=== PATIENT | female | born 1985 | race American Indian/Alaskan Native ===

== ENCOUNTER 2016-12-21 19:55 | Emergency (ER) | payer OTHER | END 2016-12-21 20:34 | disposition left against medical advice (07) | LOC: ED 19:55 | DX: M79.605 Pain in left leg (principal); Z53.21 Procedure and treatment not carried out due to patient leaving prior to being seen by health care provider ==

== ENCOUNTER 2017-02-25 20:58 | Emergency (ER) | payer OTHER ==
[2017-02-26 00:52] VITALS: BP 124/85
--- NOTE | 2017-02-26 01:01 | Emergency Department Report ---
ED General Adult HPI - General Chief complaint: High BP Stated complaint: HIGH BP/FACIAL NUMBNESS Time Seen by Provider: 02/26/17 00:20 Source: patient Mode of arrival: Ambulatory Limitations: No Limitations - History of Present Illness Initial comments: This is a 32-year-old female that presents with headache for the past 4-5 days. Patient also complains of right-sided numbness for the past 4-5 days. Patient stated went to her primary care doctor today and received a migraine medication but does not remember the name. Associated symptoms include aching in the frontal and bilateral temporal lobes. Patient stated has a history of similar symptoms. Patient denies chest pain, shortness of breath, blurry vision , nausea or vomiting. Patient denies thunderclap headache. Patient denies sudden abrupt headache. Patient stated the headache is a gradual that has been increasing in about 5 days. Patient stated darkness subsides the headache. Patient also stated lights make the headache worse. Patient denies history of high blood pressure. Patient does not seem toxic or ill in appearance. No signs and distress noted. MD Complaint: migraine headache -: Gradual ( migraine headache), days(s) (4-5) Radiation: non-radiation Severity scale (0 -10): 9 Quality: aching Consistency: constant Improves with: medication Worsens with: other (lights) Associated Symptoms: headaches. denies: confusion, chest pain, cough, diaphoresis, loss of appetite, malaise, nausea/vomiting, rash, shortness of breath, syncope, weakness Treatments Prior to Arrival: none - Related Data Home Medications Medication Instructions Recorded Confirmed Last Taken Amitriptyline [Elavil] 10 mg PO QHS 01/30/15 08/24/15 01/29/15 Previous Rx's Medication Instructions Recorded Last Taken Type ALBUTEROL NEB's [Proventil 0.083% 2.5 mg IH Q4H PRN #25 neb 11/27/13 08/23/15 15 :00 Rx NEBS] Albuterol Sulfate [Ventolin HFA] 2 puff IH Q4H PRN #1 hfa.aer.ad 11/27/13 22:00 Rx ALPRAZolam [Xanax TAB] 1 mg PO QHS PRN #12 tab 03/21/14 08/23/15 22:00 Rx Fluticasone [Flonase] 1 spray NS QDAY #1 bottle 12/22/14 08/23/15 14:00 Rx HYDROcodone/APAP 5-325 [[place] 1 - 2 each PO Q6HR PRN #20 tablet 05/25/15 09:00 Rx 5-325 mg TAB] Promethazine Dm [Phenergan Dm 5 ml PO Q6H PRN #60 ml 08/24/15 Unknown Rx 6.25/15 mg 5 ml] predniSONE [Deltasone] 20 mg PO QDAY #5 tab 08/24/15 Unknown Rx Ibuprofen [Motrin 600 MG tab] 600 mg PO Q8H PRN 5 Days 02/26/17 Unknown Rx Allergies Allergy/AdvReac Type Severity Reaction Status Date / Time shellfish derived Allergy Angioedema Verified 11/10/15 11:58 ED Review of Systems ROS: Stated complaint: HIGH BP/FACIAL NUMBNESS Other details as noted in HPI Constitutional: denies: chills, fever Eyes: denies: eye pain, eye discharge, vision change ENT: denies: ear pain, throat pain Respiratory: denies: cough, shortness of breath, wheezing Cardiovascular: denies: chest pain, palpitations Endocrine: no symptoms reported Gastrointestinal: denies: abdominal pain, nausea, diarrhea Genitourinary: denies: urgency, dysuria, discharge Musculoskeletal: denies: back pain, joint swelling, arthralgia Skin: denies: rash, lesions Neurological: denies: headache, weakness, paresthesias Psychiatric: denies: anxiety, depression Hematological/Lymphatic: denies: easy bleeding, easy bruising ED Past Medical Hx - Past Medical History Previous Medical History?: Yes Hx Psychiatric Treatment: Yes (anxiety.) Hx Asthma: Yes - Surgical History Past Surgical History?: Yes Additional Surgical History: Hernia Repair - Social History Smoking Status: Never Smoker Substance Use Type: Alcohol - Medications Home Medications: Home Medications Medication Instructions Recorded Confirmed Last Taken Type ALBUTEROL NEB's [Proventil 0.083% 2.5 mg IH Q4H PRN #25 neb 11/27/13 08/24/15 15:00 Rx NEBS] Albuterol Sulfate [Ventolin HFA] 2 puff IH Q4H PRN #1 hfa.aer.ad 11/27/1308/23/15 22:00 Rx ALPRAZolam [Xanax TAB] 1 mg PO QHS PRN #12 tab 03/21/14 08/24/15 08/23/15 22:00 Rx Fluticasone [Flonase] 1 spray NS QDAY #1 bottle 12/22/14 08/24/15 08/23/15 14: 00 Rx Amitriptyline [Elavil] 10 mg PO QHS 01/30/15 08/24/15 01/29/15 History HYDROcodone/APAP 5-325 [[place] 1 - 2 each PO Q6HR PRN #20 tablet 05/25/1508/22/15 09:00 Rx 5-325 mg TAB] Promethazine Dm [Phenergan Dm 5 ml PO Q6H PRN #60 ml 08/24/15 Unknown Rx 6.25/15 mg 5 ml] predniSONE [Deltasone] 20 mg PO QDAY #5 tab 08/24/15 Unknown Rx Ibuprofen [Motrin 600 MG tab] 600 mg PO Q8H PRN 5 Days 02/26/17 Unknown Rx ED Physical Exam - General Limitations: No Limitations General appearance: alert, in no apparent distress - Head Head exam: Present: atraumatic, normocephalic - Eye Eye exam: Present: normal appearance, PERRL, EOMI. Absent: scleral icterus, conjunctival injection, nystagmus, periorbital swelling, periorbital tenderness Pupils: Present: normal accommodation - ENT ENT exam: Present: normal exam, normal orophraynx, mucous membranes moist, TM's normal bilaterally - Neck Neck exam: Present: normal inspection, full ROM. Absent: tenderness, meningismus, lymphadenopathy - Respiratory Respiratory exam: Present: normal lung sounds bilaterally. Absent: respiratory distress, wheezes, rales, rhonchi, stridor - Cardiovascular Cardiovascular Exam: Present: regular rate, normal rhythm. Absent: systolic murmur, diastolic murmur, rubs, gallop - GI/Abdominal GI/Abdominal exam: Present: soft, normal bowel sounds. Absent: distended, tenderness, guarding, rebound, rigid, diminished bowel sounds, hyperactive bowel sounds, hypoactive bowel sounds - Extremities Exam Extremities exam: Present: normal inspection, full ROM, normal capillary refill. Absent: tenderness, pedal edema, joint swelling - Back Exam Back exam: Present: normal inspection, full ROM. Absent: tenderness, CVA tenderness (R), CVA tenderness (L) - Neurological Exam Neurological exam: Present: alert, oriented X3, CN II-XII intact, normal gait - Expanded Neurological Exam Expanded Patient oriented to: Present: person, place, time Speech: Present: fluid speech Cranial nerves: EOM's Intact: Normal, Gag Reflex: Normal, Tongue Deviation: Normal, Nystagmus: Normal, Facial Sensation: Normal Cerebellar function: Finger to Nose: Normal, Heel to Ta: Normal, Romberg: Normal Upper motor neuron: Jay Neglect: Normal, Pronator Drift: Normal, Babinski Sign : Normal, Sensory Extinction: Normal Sensory exam: Upper Extremity Light Touch: Normal, Upper Extremity Pin Prick: Normal, Upper Extremity Temperature: Normal, UE 2 Point Discrimination: Normal, Lower Extremity Light Touch: Normal, Lower Extremity Pin Prick: Normal, Lower Extremity Temperature: Normal, LE 2 Point Discrimination: Normal Motor strength exam: RUE: 5, LUE: 5, RLE: 5, LLE: 5 Best Eye Response (Patrice): (4) open spontaneously Best Motor Response (Patrice): (6) obeys commands Best Verbal Response (Saxe): (5) oriented Saxe Total: 15 - Psychiatric Psychiatric exam: Present: normal affect, normal mood - Skin Skin exam: Present: warm, dry, intact, normal color. Absent: rash ED Course Vital Signs 02/25/17 02/26/17 21:11 00:52 Temperature 98.3 F Pulse Rate 73 Respiratory 12 Rate Blood Pressure 117/85 Blood Pressure 117/85 124/85 [Left] O2 Sat by Pulse 100 Oximetry - Reevaluation(s) Reevaluation #1: 02/26/17 01:07 Dr. Muller is consulted and agrees with treatment and discharge plan 02/26/17 01:45 Patient stated feels much better with a headache 0 out of 10. Patient denies any numbness or tingling sensation to the face currently. ED Medical Decision Making - Medical Decision Making Ed course: This is a 32-year-old female that presents with migraine headache 1- patient received Reglan 10 and Benadryl 25 mg IV. After treatment patient stated he feels much better with 0 to have her headach. Denies numbness to the face. 2- I instructed the patient to follow up with her primary care doctor as soon as possible 3- [place] Subarachnoid Hemorrhage (SAH) Rule for Headache Evaluation: Ruled Out- This patient can be ruled out for subarachnoid hemorrhage by the [place] SAH Rule , which was 100% sensitive for SAH in its validation. 4- at the time of discharge the patient does not seem toxic or ill in appearance. No signs of distress noted. 5- patient agrees to discharge plan and treatment. No further question noted by the patient. Critical care attestation.: If time is entered above; I have spent that time in minutes in the direct care of this critically ill patient, excluding procedure time. ED Disposition Disposition: DISCHARGED TO HOME OR SELFCARE Is pt being admited?: No Does the pt Need Aspirin: No Condition: Stable Instructions: Ibuprofen (By mouth), Migraine Headache (ED) Additional Instructions: Follow-up with your primary care doctor in 3-5 days Take medication as prescribed as needed If symptoms worsen such as worse sudden onset of headache, nausea or vomiting, chest pain, shortness of breath, blurry vision, dizziness, report back to emergency room. Prescriptions: Ibuprofen [Motrin 600 MG tab] 600 mg PO Q8H PRN 5 Days PRN Reason: Pain Referrals: PRIMARY CARE, [Primary Care Provider] - 3-5 Days HESHAM LI MD [Staff Physician] - 3-5 Days [facility] [Outside] - 3-5 Days [facility] [Outside] - 3-5 Days Forms: Work/School Release Form(ED)
[2017-02-26] MEDS: REGLAN IV ONE (01:13)
[2017-02-26] MEDS: BENADRYL IV ONE (01:13)
== END 2017-02-26 01:55 | disposition home or self-care (01) ==
LOC: ED 20:58
DX: G43.909 Migraine, unspecified, not intractable, without status migrainosus (principal); F41.9 Anxiety disorder, unspecified; J45.909 Unspecified asthma, uncomplicated; Z91.013 Allergy to seafood
CPT/HCPCS: 96374; 96375; 99282; J1200; J2765

== ENCOUNTER 2017-12-24 18:24 | Emergency (ER) | payer OTHER ==
[2017-12-24 18:28] VITALS: BP 107/77
[2017-12-24] MEDS ORDERED: DECADRON IM ONE (20:11)
--- NOTE | 2017-12-24 20:11 | Emergency Department Report ---
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 Patient states that she doesn't know what this may be coming from she's having intermittent periods of itching and hive-like rash that R splotchy and didn't random areas of her body. 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 Other details as noted in HPI Comment: All other systems reviewed and negative ED Past Medical Hx - Past Medical History Hx Psychiatric Treatment: Yes (anxiety.) Hx Asthma: Yes - Surgical History Additional Surgical History: Hernia Repair - Social History Smoking Status: Never Smoker Substance Use Type: Alcohol - Medications Home Medications: Home Medications Medication Instructions Recorded Confirmed Last Taken Type ALBUTEROL NEB's [Proventil 0.083% 2.5 mg IH Q4H PRN #25 neb 11/27/13 08/24/15 15:00 Rx NEBS] Albuterol Sulfate [Ventolin HFA] 2 puff IH Q4H PRN #1 hfa.aer.ad 11/27/1308/23/15 22:00 Rx ALPRAZolam [Xanax TAB] 1 mg PO QHS PRN #12 tab 03/21/14 08/24/15 08/23/15 22:00 Rx Fluticasone [Flonase] 1 spray NS QDAY #1 bottle 12/22/14 08/24/15 08/23/15 14: 00 Rx Amitriptyline [Elavil] 10 mg PO QHS 01/30/15 08/24/15 01/29/15 History HYDROcodone/APAP 5-325 [[place] 1 - 2 each PO Q6HR PRN #20 tablet 05/25/1508/22/15 09:00 Rx 5-325 mg TAB] Promethazine Dm [Phenergan Dm 5 ml PO Q6H PRN #60 ml 08/24/15 Unknown Rx 6.25/15 mg 5 ml] predniSONE [Deltasone] 20 mg PO QDAY #5 tab 08/24/15 Unknown Rx Ibuprofen [Motrin 600 MG tab] 600 mg PO Q8H PRN 5 Days tablet 02/26/17 Unknown Rx diphenhydrAMINE [Benadryl CAP] 25 mg PO Q6HR PRN #20 capsule 12/24/17 Unknown Rx predniSONE [Deltasone] 20 mg PO QDAY #5 tab 12/24/17 Unknown Rx Rash Exam - Exam General: Vital signs noted. No distress. Alert and acting appropriately. HEENT: No Periorbital Edema, No Conjuctival Injection, No Chemosis, No Perioral Edema, No Tongue Edema, No Uvular Edema, No Compromised Airway, No Drooling Lungs: Yes Good Air Exchange (Normal Breath Sounds), No Wheezes, No Ronchi, No Stridor, No Cough, No Labored Respirations, No Retractions, No Use of Accessory Muscles, No Other Abnormal Lung Sounds Heart: Yes Regular, No Murmur Skin: Yes Urticarial Rash, No Maculopapular Rash, No Morbilliform rash, No Bulla (e), No Excoriations, No Weeping, No Tenderness, No Erythema, No Edema, No Encrustations, No Other Other: Positive: Abdomen Normal, Neurologic Normal, Musculoskeletal Normal ED Course Vital Signs 12/24/17 18:25 Temperature 98.7 F Pulse Rate 96 H Respiratory 18 Rate Blood Pressure 107/77 O2 Sat by Pulse 98 Oximetry Critical care attestation.: If time is entered above; I have spent that time in minutes in the direct care of this critically ill patient, excluding procedure time. ED Disposition Clinical Impression: Urticaria Disposition: DC-01 TO HOME OR SELFCARE Is pt being admited?: No Does the pt Need Aspirin: No Condition: Stable Instructions: Urticaria (ED) Prescriptions: diphenhydrAMINE [Benadryl CAP] 25 mg PO Q6HR PRN #20 capsule PRN Reason: Itching predniSONE [Deltasone] 20 mg PO QDAY #5 tab Referrals: JEFFERY SOUTH MD [Primary Care Provider] - 3-5 Days
== END 2017-12-24 20:20 | disposition home or self-care (01) ==
LOC: ED 18:24
DX: L50.8 Other urticaria (principal); F41.9 Anxiety disorder, unspecified; J45.909 Unspecified asthma, uncomplicated
CPT/HCPCS: 96372; 99282; J1100

== ENCOUNTER 2018-05-23 18:06 | Emergency (ER) | payer MEDICAID, OTHER ==
[2018-05-23 19:32] LABS: Bacteria,Urine 4+ /HPF (Negative); Bilirubin,Urine NEG (Negative); Blood,Urine NEG (Negative); Color,Urine Amber (Yellow); Mucus,Urine 3+ /HPF; Protein,Urine <15 mg/dL mg/dL (Negative)
[2018-05-23 19:40] LABS: HCG Qualitative,Urine Negative (Negative)
[2018-05-23] MEDS ORDERED: MOTRIN PO ONE (21:09)
[2018-05-23] MEDS ORDERED: TYLENOL ONE (21:16)
--- NOTE | 2018-05-23 21:16 | Emergency Department Report ---
ED Female HPI - General Chief complaint: Urogenital-Female Stated complaint: PAIN IN MY BODY Time Seen by Provider: 05/23/18 21:05 Source: patient Mode of arrival: Ambulatory Limitations: No Limitations - History of Present Illness Initial comments: 33-year-old -Italian female comes in complaining of back pain radiates to her lower abdominal area. Patient reports that she saw her MAINTE[employer] and was diagnosed with UTI but wasn't given any antibiotics. Patient points that they gave her a pill that made her urine turn orange. Patient states the pain is worse today. As noted and review of triage notes that patient a low-grade fever. Patient has a history of anxiety. -: days(s) (3) Severity scale (0 -10): 10 Quality: aching Consistency: intermittent Improves with: none Worsens with: urination Are you Now?: No Last Menstrual Period: 05/11/18 EDC: 02/15/19 - Related Data Home Medications Medication Instructions Recorded Confirmed Last Taken Amitriptyline [Elavil] 10 mg PO QHS 01/30/15 08/24/15 01/29/15 Previous Rx's Medication Instructions Recorded Last Taken Type ALBUTEROL NEB's [Proventil 0.083% 2.5 mg IH Q4H PRN #25 neb 11/27/13 08/23/15 15 :00 Rx NEBS] Albuterol Sulfate [Ventolin HFA] 2 puff IH Q4H PRN #1 hfa.aer.ad 11/27/13 22:00 Rx ALPRAZolam [Xanax TAB] 1 mg PO QHS PRN #12 tab 03/21/14 08/23/15 22:00 Rx Fluticasone [Flonase] 1 spray NS QDAY #1 bottle 12/22/14 08/23/15 14:00 Rx HYDROcodone/APAP 5-325 [[place] 1 - 2 each PO Q6HR PRN #20 tablet 05/25/15 09:00 Rx 5-325 mg TAB] Promethazine Dm [Phenergan Dm 5 ml PO Q6H PRN #60 ml 08/24/15 Unknown Rx 6.25/15 mg 5 ml] predniSONE [Deltasone] 20 mg PO QDAY #5 tab 08/24/15 Unknown Rx diphenhydrAMINE [Benadryl CAP] 25 mg PO Q6HR PRN #20 capsule 12/24/17 Unknown Rx predniSONE [Deltasone] 20 mg PO QDAY #5 tab 12/24/17 Unknown Rx Nitrofurantoin Monohyd/M-Cryst 100 mg PO BID #20 capsule 05/23/18 Unknown Rx [Macrobid 100 mg Capsule] Allergies Allergy/AdvReac Type Severity Reaction Status Date / Time chocolate flavor Allergy Rash Verified 05/23/18 18:13 shellfish derived Allergy Angioedema Verified 05/23/18 18:13 ED Review of Systems ROS: Stated complaint: PAIN IN MY BODY Other details as noted in HPI Constitutional: denies: chills, fever Gastrointestinal: abdominal pain (suprapubic) Genitourinary: urgency, frequency Musculoskeletal: back pain Skin: denies: rash, lesions Neurological: denies: headache, weakness, paresthesias Psychiatric: denies: anxiety, depression Hematological/Lymphatic: denies: easy bleeding, easy bruising ED Past Medical Hx - Past Medical History Hx Psychiatric Treatment: Yes (anxiety.) Hx Asthma: Yes - Surgical History Additional Surgical History: Hernia Repair - Social History Smoking Status: Never Smoker Substance Use Type: Alcohol - Medications Home Medications: Home Medications Medication Instructions Recorded Confirmed Last Taken Type ALBUTEROL NEB's [Proventil 0.083% 2.5 mg IH Q4H PRN #25 neb 11/27/13 08/24/15 15:00 Rx NEBS] Albuterol Sulfate [Ventolin HFA] 2 puff IH Q4H PRN #1 hfa.aer.ad 11/27/1308/23/15 22:00 Rx ALPRAZolam [Xanax TAB] 1 mg PO QHS PRN #12 tab 03/21/14 08/24/15 08/23/15 22:00 Rx Fluticasone [Flonase] 1 spray NS QDAY #1 bottle 12/22/14 08/24/15 08/23/15 14: 00 Rx Amitriptyline [Elavil] 10 mg PO QHS 01/30/15 08/24/15 01/29/15 History HYDROcodone/APAP 5-325 [[place] 1 - 2 each PO Q6HR PRN #20 tablet 05/25/1508/22/15 09:00 Rx 5-325 mg TAB] Promethazine Dm [Phenergan Dm 5 ml PO Q6H PRN #60 ml 08/24/15 Unknown Rx 6.25/15 mg 5 ml] predniSONE [Deltasone] 20 mg PO QDAY #5 tab 08/24/15 Unknown Rx diphenhydrAMINE [Benadryl CAP] 25 mg PO Q6HR PRN #20 capsule 12/24/17 Unknown Rx predniSONE [Deltasone] 20 mg PO QDAY #5 tab 12/24/17 Unknown Rx Nitrofurantoin Monohyd/M-Cryst 100 mg PO BID #20 capsule 05/23/18 Unknown Rx [Macrobid 100 mg Capsule] ED Physical Exam - General Limitations: No Limitations General appearance: alert, in no apparent distress - Head Head exam: Present: atraumatic, normocephalic - Eye Eye exam: Present: normal appearance - Neck Neck exam: Present: normal inspection - Respiratory Respiratory exam: Present: normal lung sounds bilaterally. Absent: respiratory distress - Cardiovascular Cardiovascular Exam: Present: regular rate, normal rhythm. Absent: systolic murmur, diastolic murmur, rubs, gallop - GI/Abdominal GI/Abdominal exam: Present: soft. Absent: distended, tenderness - Back Exam Back exam: Present: full ROM - Neurological Exam Neurological exam: Present: alert, oriented X3, normal gait - Psychiatric Psychiatric exam: Present: normal affect, normal mood - Skin Skin exam: Present: warm, dry, intact, normal color. Absent: rash ED Course Vital Signs 05/23/18 18:13 Temperature 99.2 F Pulse Rate 84 Respiratory 18 Rate Blood Pressure 109/81 O2 Sat by Pulse 96 Oximetry Critical care attestation.: If time is entered above; I have spent that time in minutes in the direct care of this critically ill patient, excluding procedure time. ED Disposition Clinical Impression: UTI (urinary tract infection) Qualifiers: Urinary tract infection type: acute cystitis Hematuria presence: without hematuria Qualified Code(s): N30.00 - Acute cystitis without hematuria Disposition: TO HOME OR SELFCARE Is pt being admited?: No Does the pt Need Aspirin: No Condition: Stable Instructions: Urinary Tract Infection in Women (ED) Additional Instructions: Complete antibiotics as prescribed. Ibuprofen as needed for pain. Prescriptions: Nitrofurantoin Monohyd/M-Cryst [Macrobid 100 mg Capsule] 100 mg PO BID #20 capsule Referrals: JEFFERY SOUTH MD [Primary Care Provider] - 3-5 Days Forms: Work/School Release Form(ED)
[2018-05-23] MEDS ORDERED: TYLENOL PO ONE (21:19)
[2018-05-23 21:32] VITALS: BP 118/72
== END 2018-05-23 21:31 | disposition home or self-care (01) ==
LOC: ED 18:06
DX: N30.00 Acute cystitis without hematuria (principal); J45.909 Unspecified asthma, uncomplicated; F41.9 Anxiety disorder, unspecified; Z91.013 Allergy to seafood; Z91.09 Other allergy status, other than to drugs and biological substances; Z79.899 Other long term (current) drug therapy
CPT/HCPCS: 81001; 81025; 87086; 99283

== ENCOUNTER 2019-07-03 08:34 | Emergency (ER) | payer OTHER ==
[2019-07-03 08:41] VITALS: BP 125/78
--- NOTE | 2019-07-03 10:06 | Emergency Department Report ---
ED Abdominal Pain HPI - General Chief Complaint: Weakness Stated Complaint: LOW GLUCOSE/FATIQUE Time Seen by Provider: 07/03/19 10:02 Source: patient, family Mode of arrival: Ambulatory Limitations: No Limitations - Related Data Home Medications Medication Instructions Recorded Confirmed Last Taken Amitriptyline [Elavil] 10 mg PO QHS 01/30/15 08/24/15 01/29/15 Previous Rx's Medication Instructions Recorded Last Taken Type ALBUTEROL NEB's [Proventil 0.083% 2.5 mg IH Q4H PRN #25 neb 11/27/13 08/23/15 15:00 Rx NEBS] Albuterol Sulfate [Ventolin HFA] 2 puff IH Q4H PRN #1 hfa.aer.ad 11/27/13 08/23/15 22:00 Rx ALPRAZolam [Xanax TAB] 1 mg PO QHS PRN #12 tab 03/21/14 08/23/15 22:00 Rx Fluticasone [Flonase] 1 spray NS QDAY #1 bottle 12/22/14 08/23/15 14:00 Rx HYDROcodone/APAP 5-325 [[place] 1 - 2 each PO Q6HR PRN #20 tablet 05/25/15 08/22/15 09:00 Rx 5-325 mg TAB] Promethazine Dm (Nf) [Phenergan Dm 5 ml PO Q6H PRN #60 ml 08/24/15 Unknown Rx 6.25/15 mg 5 ml] predniSONE [Deltasone] 20 mg PO QDAY #5 tab 08/24/15 Unknown Rx diphenhydrAMINE [Benadryl CAP] 25 mg PO Q6HR PRN #20 capsule 12/24/17 Unknown Rx predniSONE [Deltasone] 20 mg PO QDAY #5 tab 12/24/17 Unknown Rx Nitrofurantoin Monohyd/M-Cryst 100 mg PO BID #20 capsule 05/23/18 Unknown Rx [Macrobid 100 mg Capsule] Allergies Allergy/AdvReac Type Severity Reaction Status Date / Time chocolate flavor Allergy Rash Verified 05/23/18 18:13 shellfish derived Allergy Angioedema Verified 05/23/18 18:13 ED Review of Systems ROS: Stated complaint: LOW GLUCOSE/FATIQUE Other details as noted in HPI ED Past Medical Hx - Past Medical History Previous Medical History?: Yes Hx Diabetes: Yes Hx Psychiatric Treatment: Yes (anxiety.) Hx Asthma: Yes - Surgical History Past Surgical History?: Yes Additional Surgical History: Hernia Repair - Social History Smoking Status: Never Smoker Substance Use Type: None - Medications Home Medications: Home Medications Medication Instructions Recorded Confirmed Last Taken Type ALBUTEROL NEB's [Proventil 0.083% 2.5 mg IH Q4H PRN #25 neb 11/27/13 08/24/15 08/23/15 15:00 Rx NEBS] Albuterol Sulfate [Ventolin HFA] 2 puff IH Q4H PRN #1 hfa.aer.ad 11/27/13 08/24/15 08/23/15 22:00 Rx ALPRAZolam [Xanax TAB] 1 mg PO QHS PRN #12 tab 03/21/14 08/24/15 08/23/15 22:00 Rx Fluticasone [Flonase] 1 spray NS QDAY #1 bottle 12/22/14 08/24/15 08/23/15 14:00 Rx Amitriptyline [Elavil] 10 mg PO QHS 01/30/15 08/24/15 01/29/15 History HYDROcodone/APAP 5-325 [[place] 1 - 2 each PO Q6HR PRN #20 tablet 05/25/15 08/24/15 08/22/15 09:00 Rx 5-325 mg TAB] Promethazine Dm (Nf) [Phenergan Dm 5 ml PO Q6H PRN #60 ml 08/24/15 Unknown Rx 6.25/15 mg 5 ml] predniSONE [Deltasone] 20 mg PO QDAY #5 tab 08/24/15 Unknown Rx diphenhydrAMINE [Benadryl CAP] 25 mg PO Q6HR PRN #20 capsule 12/24/17 Unknown Rx predniSONE [Deltasone] 20 mg PO QDAY #5 tab 12/24/17 Unknown Rx Nitrofurantoin Monohyd/M-Cryst 100 mg PO BID #20 capsule 05/23/18 Unknown Rx [Macrobid 100 mg Capsule] ED Physical Exam - General Limitations: No Limitations ED Course Vital Signs 07/03/19 08:39 Temperature 98.4 F Pulse Rate 76 Respiratory 16 Rate Blood Pressure 125/78 O2 Sat by Pulse 99 Oximetry ED Medical Decision Making - Lab Data Lab Results 07/03/19 Range/Units 08:48 POC Glucose 85 (70-105) Critical care attestation.: If time is entered above; I have spent that time in minutes in the direct care of this critically ill patient, excluding procedure time. ED Disposition Clinical Impression: Acute viral syndrome Disposition: DC-01 TO HOME OR SELFCARE Is pt being admited?: No Does the pt Need Aspirin: No Condition: Stable Instructions: Viral Syndrome (ED) Additional Instructions: Please increase your fluid intake to 2-3 L of water daily and rests and a few condition worsens return to emergency room otherwise follow-up with your primary care physician and 2 days. Referrals: PRIMARY CARE, [Primary Care Provider] - 07/05/19 [facility] [Outside] - 07/05/19 Forms: Accompanied Note, Work/School Release Form(ED)
--- NOTE | 2019-07-03 10:18 | Emergency Department Report ---
HPI - General Chief Complaint: Weakness Time Seen by Provider: 07/03/19 10:02 ED Past Medical Hx - Past Medical History Previous Medical History?: Yes Hx Diabetes: Yes Hx Psychiatric Treatment: Yes (anxiety.) Hx Asthma: Yes - Surgical History Past Surgical History?: Yes Additional Surgical History: Hernia Repair - Social History Smoking Status: Never Smoker Substance Use Type: None - Medications Home Medications: Home Medications Medication Instructions Recorded Confirmed Last Taken Type ALBUTEROL NEB's [Proventil 0.083% 2.5 mg IH Q4H PRN #25 neb 11/27/13 08/24/15 08/23/15 15:00 Rx NEBS] Albuterol Sulfate [Ventolin HFA] 2 puff IH Q4H PRN #1 hfa.aer.ad 11/27/13 08/24/15 08/23/15 22:00 Rx ALPRAZolam [Xanax TAB] 1 mg PO QHS PRN #12 tab 03/21/14 08/24/15 08/23/15 22:00 Rx Fluticasone [Flonase] 1 spray NS QDAY #1 bottle 12/22/14 08/24/15 08/23/15 14:00 Rx Amitriptyline [Elavil] 10 mg PO QHS 01/30/15 08/24/15 01/29/15 History HYDROcodone/APAP 5-325 [[place] 1 - 2 each PO Q6HR PRN #20 tablet 05/25/15 08/24/15 08/22/15 09:00 Rx 5-325 mg TAB] Promethazine Dm (Nf) [Phenergan Dm 5 ml PO Q6H PRN #60 ml 08/24/15 Unknown Rx 6.25/15 mg 5 ml] predniSONE [Deltasone] 20 mg PO QDAY #5 tab 08/24/15 Unknown Rx diphenhydrAMINE [Benadryl CAP] 25 mg PO Q6HR PRN #20 capsule 12/24/17 Unknown Rx predniSONE [Deltasone] 20 mg PO QDAY #5 tab 12/24/17 Unknown Rx Nitrofurantoin Monohyd/M-Cryst 100 mg PO BID #20 capsule 05/23/18 Unknown Rx [Macrobid 100 mg Capsule] ED Review of Systems ROS: Stated complaint: LOW GLUCOSE/FATIQUE Other details as noted in HPI Physical Exam - Physical Exam Vital Signs: Vital Signs 07/03/19 08:39 Temperature 98.4 F Pulse Rate 76 Respiratory 16 Rate Blood Pressure 125/78 O2 Sat by Pulse 99 Oximetry ED Course Vital Signs 07/03/19 08:39 Temperature 98.4 F Pulse Rate 76 Respiratory 16 Rate Blood Pressure 125/78 O2 Sat by Pulse 99 Oximetry Critical care attestation.: If time is entered above; I have spent that time in minutes in the direct care of this critically ill patient, excluding procedure time. ED Disposition Clinical Impression: Acute viral syndrome Disposition: DC-01 TO HOME OR SELFCARE Condition: Stable Instructions: Viral Syndrome (ED) Additional Instructions: Please increase your fluid intake to 2-3 L of water daily and rests and a few condition worsens return to emergency room otherwise follow-up with your primary care physician and 2 days. Referrals: [facility] [Outside] - 07/05/19 PRIMARY CARE [Primary Care Provider] - 07/05/19 Forms: Accompanied Note, Work/School Release Form(ED)
== END 2019-07-03 10:35 | disposition home or self-care (01) ==
LOC: ED 08:34
DX: E16.2 Hypoglycemia, unspecified (principal); E11.9 Type 2 diabetes mellitus without complications; F41.9 Anxiety disorder, unspecified; J45.909 Unspecified asthma, uncomplicated; Z98.890 Other specified postprocedural states; Z79.899 Other long term (current) drug therapy
CPT/HCPCS: 82962; 99283

== ENCOUNTER 2020-04-24 10:03 | Emergency (ER) | payer OTHER ==
[2020-04-24 11:35] VITALS: BP 111/71
--- NOTE | 2020-04-24 11:38 | Event Note ---
ED Screening Note Date of service: 04/24/20 Time: 11:37 ED Screening Note: 35-year-old -[place] female patient with history of diabetes presents with complaints of epigastric pain the past 3 days. Patient describes the pain as a burning sensation and states it is very difficult to eat. She has vomited, however denies any hematemesis or coffee- ground emesis. She states her stools are dark, however denies black tarry appearing stools Patient also denies any history of gastroparesis She states her glucose is controlled via diet and usually is around 75 on average This initial assessment/diagnostic orders/clinical plan/treatment(s) is/are subject to change based on patients health status, clinical progression and re- assessment by fellow clinical providers in the ED. Further treatment and workup at subsequent clinical providers discretion. Patient/guardian urged not to elope from the ED as their condition may be serious if not clinically assessed and managed. Initial orders include: Labs
[2020-04-24] MEDS ORDERED: SODIUM CHLORIDE 0.9% 1000 ML 1,000 ML IV ONE (11:56)
[2020-04-24] MEDS ORDERED: MORPHINE 4 MG/1 ML INJ IV ONE (11:56)
[2020-04-24] MEDS ORDERED: ONDANSETRON 4 MG/2 ML INJ IV ONE (11:56)
[2020-04-24 12:21] LABS: Basophils % (Auto) 0.4 % (0.0-1.8); Eosinophils % (Auto) 1.1 % (0.0-4.3); Hematocrit 39.1 % (30.3-42.9); Lymphocytes # (Auto) 1.1 K/mm3 (1.2-5.4); Lymphocytes % (Auto) 27.1 % (13.4-35.0); Mean Corpuscular HGB Conc 33 % (30-34); Mean Corpuscular Volume 97 fl (79-97); Monocytes # (Auto) 0.3 K/mm3 (0.0-0.8); Monocytes % (Auto) 6.6 % (0.0-7.3); Platelet Count 260 K/mm3 (140-440); Red Blood Count 4.04 M/mm3 (3.65-5.03); Red Cell Distribution Width 13.5 % (13.2-15.2)
[2020-04-24 12:24] LABS: Bilirubin,Urine NEG (Negative); Blood,Urine MOD (Negative); Color,Urine Yellow (Yellow); Mucus,Urine FEW /HPF; Protein,Urine <15 mg/dL mg/dL (Negative); Urobilinogen,Urine < 2.0 mg/dL (<2.0)
[2020-04-24 12:26] LABS: HCG Qualitative,Urine Negative (Negative)
[2020-04-24 13:00] LABS: Alanine Aminotransferase 16 units/L (7-56); Albumin 4.4 g/dL (3.9-5); BUN/Creatinine Ratio 12; Blood Urea Nitrogen 7 mg/dL (7-17); Calcium 9.1 mg/dL (8.4-10.2)
--- NOTE | 2020-04-24 13:06 | Emergency Department Report ---
ED Abdominal Pain HPI - General Chief Complaint: Abdominal Pain Stated Complaint: ABD PAIN Time Seen by Provider: 04/24/20 11:33 Source: patient Mode of arrival: Ambulatory Limitations: No Limitations - History of Present Illness Initial Comments: This is a 35-year-old female nontoxic, well nourished in appearance, no acute signs of distress presents to the ED with c/o of nausea and abdominal pain 2 days. Patient denies any vomiting. Patient describes abdominal pain as cramping and aching with level of 8/10 to upper abdomen area Patient denies chest pain, short of breath, fever, hemoptysis, blood in stool, chills, headache, stiff neck, numbness or tingling. Patient denies any diarrhea or constipation. Denies any blood in stool. Patient denies any recent travels. MD Complaint: abdominal pain -: days(s) (2) Location: epigastric Radiation: none Migration to: no migration Severity: mild Severity scale (0 -10): 3 Quality: cramping Consistency: intermittent Improves With: nothing Worsens With: nothing Associated Symptoms: nausea. denies: vomiting, diarrhea, fever, chills, constipation, dysuria, hematemesis, hematochezia, melena, hematuria, anorexia, syncope - Related Data Home Medications Medication Instructions Recorded Confirmed Last Taken Amitriptyline [Elavil] 10 mg PO QHS 01/30/15 08/24/15 01/29/15 Previous Rx's Medication Instructions Recorded Last Taken Type ALBUTEROL NEB's [Proventil 0.083% 2.5 mg IH Q4H PRN #25 neb 11/27/13 08/23/15 15:00 Rx NEBS] Albuterol Sulfate [Ventolin HFA] 2 puff IH Q4H PRN #1 hfa.aer.ad 11/27/13 08/23/15 22:00 Rx ALPRAZolam [Xanax TAB] 1 mg PO QHS PRN #12 tab 03/21/14 08/23/15 22:00 Rx Fluticasone [Flonase] 1 spray NS QDAY #1 bottle 12/22/14 08/23/15 14:00 Rx HYDROcodone/APAP 5-325 [[place] 1 - 2 each PO Q6HR PRN #20 tablet 05/25/15 08/22/15 09:00 Rx 5-325 mg TAB] Promethazine Dm (Nf) [Phenergan Dm 5 ml PO Q6H PRN #60 ml 08/24/15 Unknown Rx 6.25/15 mg 5 ml] predniSONE [Deltasone] 20 mg PO QDAY #5 tab 08/24/15 Unknown Rx diphenhydrAMINE [Benadryl CAP] 25 mg PO Q6HR PRN #20 capsule 12/24/17 Unknown Rx predniSONE [Deltasone] 20 mg PO QDAY #5 tab 12/24/17 Unknown Rx Nitrofurantoin Monohyd/M-Cryst 100 mg PO BID #20 capsule 05/23/18 Unknown Rx [Macrobid 100 mg Capsule] Acetaminophen/Codeine [Tylenol 1 tab PO Q6H PRN #12 tab 04/24/20 Unknown Rx /Codeine # 3 tab] Ondansetron [Zofran Odt] 4 mg PO Q8HR PRN #20 tab.rapdis 04/24/20 Unknown Rx Allergies Allergy/AdvReac Type Severity Reaction Status Date / Time chocolate flavor Allergy Rash Verified 05/23/18 18:13 shellfish derived Allergy Angioedema Verified 05/23/18 18:13 ED Review of Systems ROS: Stated complaint: ABD PAIN Other details as noted in HPI Constitutional: denies: chills, fever Eyes: denies: eye pain, eye discharge, vision change ENT: denies: ear pain, throat pain Respiratory: denies: cough, shortness of breath, wheezing Cardiovascular: denies: chest pain, palpitations Endocrine: no symptoms reported Gastrointestinal: abdominal pain, nausea. denies: vomiting, diarrhea, constipation, hematemesis, melena, hematochezia Genitourinary: denies: urgency, dysuria, discharge Musculoskeletal: denies: back pain, joint swelling, arthralgia Skin: denies: rash, lesions Neurological: denies: headache, weakness, paresthesias Psychiatric: denies: anxiety, depression Hematological/Lymphatic: denies: easy bleeding, easy bruising ED Past Medical Hx - Past Medical History Previous Medical History?: Yes Hx Diabetes: Yes Hx Psychiatric Treatment: Yes (anxiety.) Hx Asthma: Yes - Surgical History Past Surgical History?: Yes Additional Surgical History: Hernia Repair - Social History Smoking Status: Never Smoker Substance Use Type: Alcohol - Medications Home Medications: Home Medications Medication Instructions Recorded Confirmed Last Taken Type ALBUTEROL NEB's [Proventil 0.083% 2.5 mg IH Q4H PRN #25 neb 11/27/13 08/24/15 08/23/15 15:00 Rx NEBS] Albuterol Sulfate [Ventolin HFA] 2 puff IH Q4H PRN #1 hfa.aer.ad 11/27/13 08/24/15 08/23/15 22:00 Rx ALPRAZolam [Xanax TAB] 1 mg PO QHS PRN #12 tab 03/21/14 08/24/15 08/23/15 22:00 Rx Fluticasone [Flonase] 1 spray NS QDAY #1 bottle 12/22/14 08/24/15 08/23/15 14:00 Rx Amitriptyline [Elavil] 10 mg PO QHS 01/30/15 08/24/15 01/29/15 History HYDROcodone/APAP 5-325 [[place] 1 - 2 each PO Q6HR PRN #20 tablet 05/25/15 08/24/15 08/22/15 09:00 Rx 5-325 mg TAB] Promethazine Dm (Nf) [Phenergan Dm 5 ml PO Q6H PRN #60 ml 08/24/15 Unknown Rx 6.25/15 mg 5 ml] predniSONE [Deltasone] 20 mg PO QDAY #5 tab 08/24/15 Unknown Rx diphenhydrAMINE [Benadryl CAP] 25 mg PO Q6HR PRN #20 capsule 12/24/17 Unknown Rx predniSONE [Deltasone] 20 mg PO QDAY #5 tab 12/24/17 Unknown Rx Nitrofurantoin Monohyd/M-Cryst 100 mg PO BID #20 capsule 05/23/18 Unknown Rx [Macrobid 100 mg Capsule] Acetaminophen/Codeine [Tylenol 1 tab PO Q6H PRN #12 tab 04/24/20 Unknown Rx /Codeine # 3 tab] Ondansetron [Zofran Odt] 4 mg PO Q8HR PRN #20 tab.rapdis 04/24/20 Unknown Rx ED Physical Exam - General Limitations: No Limitations General appearance: alert, in no apparent distress - Head Head exam: Present: atraumatic, normocephalic - Eye Eye exam: Present: normal appearance - Neck Neck exam: Present: normal inspection, full ROM. Absent: tenderness, meningismus, lymphadenopathy - Respiratory Respiratory exam: Present: normal lung sounds bilaterally. Absent: respiratory distress, wheezes, rales, rhonchi, stridor, chest wall tenderness, accessory muscle use, decreased breath sounds, prolonged expiratory - Cardiovascular Cardiovascular Exam: Present: regular rate, normal rhythm, normal heart sounds. Absent: bradycardia, tachycardia, irregular rhythm, systolic murmur, diastolic murmur, rubs, gallop - GI/Abdominal GI/Abdominal exam: Present: soft, normal bowel sounds. Absent: distended, tenderness, guarding, rebound, rigid, diminished bowel sounds - Extremities Exam Extremities exam: Present: normal inspection, full ROM - Back Exam Back exam: Present: normal inspection, full ROM. Absent: tenderness, CVA tenderness (R), CVA tenderness (L), muscle spasm, paraspinal tenderness, vertebral tenderness, rash noted - Neurological Exam Neurological exam: Present: alert, oriented X3, normal gait - Psychiatric Psychiatric exam: Present: normal affect, normal mood - Skin Skin exam: Present: warm, dry, intact, normal color. Absent: rash ED Course Vital Signs 04/24/20 11:33 Temperature 98.5 F Pulse Rate 78 Respiratory 16 Rate Blood Pressure 111/71 O2 Sat by Pulse 99 Oximetry ED Medical Decision Making - Lab Data Result diagrams: 04/24/20 12:01 04/24/20 12:01 - Radiology Data Referring Physician: DEVANG GIBSON Patient Name: BASSAM HUERTA Date of : 1985 Sex: Female Report Date: 2020-04-24 Report Status: Finalized [facility] [address] [place] [address] XRay Report Signed Patient: BASSAM HUERTA MR#: [id number] : 1985 Acct:[id number] Age/Sex: 35 / F ADM Date: 04/24/20 Loc: ED Attending Dr: Ordering Physician: DEVANG GIBSON NP Date of Service: 04/24/20 Procedure(s): XR abd series w cxr 1V Accession Number(s): [id number] cc: DEVANG GIBSON NP Fluoro Time In Minutes: ACUTE ABDOMINAL SERIES 04/24/2020 INDICATION / CLINICAL INFORMATION: abd pain. COMPARISON: None available. FINDINGS: The intestinal gas pattern is normal. No evidence of pneumoperitoneum. No pathologic calcifications project over the upper urinary tract. Phleboliths are seen in the pelvis. The accompanying chest x-ray shows no acute disease. Signer Name: Daron Washington MD Signed: 04/24/2020 3:14 PM Workstation Name: [id number] Transcribed By: SHANELLE Dictated By: Daron Washington MD Electronically Authenticated By: Daron Washington MD Signed Date/Time: 04/24/20 151 DD/ 12 TD/TT: Referring Physician: DEVANG GIBSON Patient Name: BASSAM HUERTA Date of : 1985 Sex: Female Report Date: 2020-04-24 Report Status: Finalized [address] [address] Ultrasound Report Signed Patient: BASSAM HUERTA MR#: [id number] : 1985 Acct:[id number] Age/Sex: 35 / F ADM Date: 04/24/20 Loc: ED Attending Dr: Ordering Physician: DEVANG GIBSON NP Date of Service: 04/24/20 Procedure(s): US abdomen complete Accession Number(s): [id number] cc: DEVANG GIBSON NP ULTRASOUND ABDOMEN, COMPLETE INDICATION: upper abdominal pain. COMPARISON: No relevant prior imaging study available. FINDINGS: Pancreas: No significant abnormality. Abdominal Aorta: No significant abnormality. IVC: No significant abnormality. Liver: No significant abnormality. Gallbladder: No significant abnormality. Bile ducts: No significant abnormality. Common bile duct measures 3 mm. Kidneys: Right: No significant abnormality. Left : No significant abnormality. Spleen: No significant abnormality. Free fluid: None. Additional Findings: None. IMPRESSION: 1. No sonographic abnormality of the abdomen. Signer Name: Daron Washington MD Signed: 04/24/2020 3:13 PM Workstation Name: [id number] Transcribed By: [place] Dictated By: Daron Washington MD Electronically Authenticated By: Daron Washington MD Signed Date/Time: 04/24/201512 DD/ 12 TD/TT: - Medical Decision Making This is a 35-year-old female that presents with abdominal pain and nausea vomiting. Patient is stable and was examined by me. Negative signs of symptoms of appendicitis. Labs obtained. UA obtained. US/XR of abdomen obtained and dictated by the radiologist. Patient is notified of the report with no questions noted by the patient. Vital signs are stable prior to discharge. Patient received medical treatment in the ED which patient stated symptoms has resovled and subsided. Was instructed note to operate any machinery due to possible drowsiness and stated someone will drive the patient home. A by mouth challenge has been obtained and patient tolerated well with no nausea vomiting. Patient was notified of strict precatuions of appendictis symptoms and to return to the ED if symptoms occurs as soon as possible. Patient was also instructed to Follow-up with a primary care doctor in 3-5 days or if symptoms worsen and continue return to emergency room as soon as possible. At time of discharge, the patient does not seem toxic or ill in appearance. No acute signs of distress noted. Patient agrees to discharge treatment plan of care. No further questions noted by the patient. Critical care attestation.: If time is entered above; I have spent that time in minutes in the direct care of this critically ill patient, excluding procedure time. ED Disposition Clinical Impression: Abdominal pain Qualifiers: Abdominal location: upper abdomen, unspecified Qualified Code(s): R10.10 - Upper abdominal pain, unspecified Nausea & vomiting Qualifiers: Vomiting type: unspecified Vomiting Intractability: non-intractable Qualified Code(s): R11.2 - Nausea with vomiting, unspecified Disposition: DC-01 TO HOME OR SELFCARE Is pt being admited?: No Does the pt Need Aspirin: No Condition: Stable Instructions: Acute Nausea and Vomiting (ED) Additional Instructions: Follow-up with a primary care and veterinarian assistant doctor in 3-5 days or if symptoms worsen and continue return to emergency room as soon as possible. Do not operate any machinery while taking Tylenol with codeine as this may cause drowsiness. Prescriptions: Acetaminophen/Codeine [Tylenol /Codeine # 3 tab] 1 tab PO Q6H PRN #12 tab PRN Reason: Pain , Severe (7-10) Ondansetron [Zofran Odt] 4 mg PO Q8HR PRN #20 tab.rapdis PRN Reason: nausea Referrals: PRIMARY CARE, [Primary Care Provider] - 3-5 Days FAIZAN MORGAN MD [Staff Physician] - 3-5 Days [facility] [Provider Group] - 3-5 Days Forms: Work/School Release Form(ED)
--- NOTE | 2020-04-24 15:18 | Ultrasound Report ---
ULTRASOUND ABDOMEN, COMPLETE INDICATION: upper abdominal pain. COMPARISON: No relevant prior imaging study available. FINDINGS: Pancreas: No significant abnormality. Abdominal Aorta: No significant abnormality. IVC: No significant abnormality. Liver: No significant abnormality. Gallbladder: No significant abnormality. Bile ducts: No significant abnormality. Common bile duct measures 3 mm. Kidneys: Right: No significant abnormality. Left : No significant abnormality. Spleen: No significant abnormality. Free fluid: None. Additional Findings: None. IMPRESSION: 1. No sonographic abnormality of the abdomen. Signer Name: Daron Washington MD Signed: 04/24/2020 3:13 PM Workstation Name: [id number]
--- NOTE | 2020-04-24 15:18 | XRay Report ---
ACUTE ABDOMINAL SERIES 04/24/2020 INDICATION / CLINICAL INFORMATION: abd pain. COMPARISON: None available. FINDINGS: The intestinal gas pattern is normal. No evidence of pneumoperitoneum. No pathologic calcifications project over the upper urinary tract. Phleboliths are seen in the pelvis. The accompanying chest x-ray shows no acute disease. Signer Name: Daron Washington MD Signed: 04/24/2020 3:14 PM Workstation Name: [id number]
== END 2020-04-24 16:41 | disposition home or self-care (01) ==
LOC: ED 10:03
DX: R10.13 Epigastric pain (principal); R11.2 Nausea with vomiting, unspecified; E11.9 Type 2 diabetes mellitus without complications; F41.9 Anxiety disorder, unspecified; J45.909 Unspecified asthma, uncomplicated; Z79.899 Other long term (current) drug therapy; Z91.013 Allergy to seafood; Z91.018 Allergy to other foods
CPT/HCPCS: 36415; 74022; 76700; 80053; 81001; 81025; 83690; 85025; 96361; 96374; 96375; 99284; J2270; J2405; J7030; 99283

== ENCOUNTER 2021-05-18 18:53 | Emergency (ER) | payer OTHER | END 2021-05-18 18:58 | disposition left against medical advice (07) | LOC: ED 18:53 | DX: L98.8 Other specified disorders of the skin and subcutaneous tissue (principal); Z53.21 Procedure and treatment not carried out due to patient leaving prior to being seen by health care provider ==

== ENCOUNTER 2022-06-18 18:12 | Emergency (ER) | payer OTHER | END 2022-06-19 05:20 | disposition left against medical advice (07) | LOC: ED 18:12 | DX: J06.9 Acute upper respiratory infection, unspecified (principal); Z53.21 Procedure and treatment not carried out due to patient leaving prior to being seen by health care provider ==